=== PATIENT | female | born 1960 | race Caucasian/White ===

== ENCOUNTER → 2020-02-01 | Outpatient (CLI) | payer OTHER ==
--- NOTE | 2020-02-01 16:41 | Diagnostic Imaging Report ---
INDICATION: Lung nodules. Serum blood glucose level at the time of injection is 91 mg/dL. Patient was administered 13.8 mCi F18 FDG intravenously in the right antecubital location and PET imaging was performed from the top of the skull to mid thighs. Noncontrast CT was also performed for attenuation correction and anatomic correlation. No prior imaging is available for comparison. There is symmetric activity throughout the brain. Physiologic activity throughout the soft tissues of the neck is noted. There is very low level activity within the area of slightly nodular density in the right lung apex with an SUV max of 1.4. No other areas of parenchymal hypermetabolism are seen. The mediastinum and kallie are unremarkable. Physiologic activity throughout the GI and tracts is noted. No suspicious hypermetabolism is identified. IMPRESSION: Low-level activity in the right apical area of nodularity, perhaps on an infectious/inflammatory basis. Continued close interval CT chest follow-up is recommended to confirm stability. No other suspicious abnormality is detected. Dictated by: Dictated on workstation # [id number]
== END ==
LOC: RAD 09:07
PROVIDERS: ATTEND Family Medicine
DX: R91.8 Other nonspecific abnormal finding of lung field (principal)
CPT/HCPCS: 78815; A9552